=== PATIENT | male | born 1995 | race Caucasian/White ===

== ENCOUNTER → 2017-10-09 | Outpatient (CLI) | payer OTHER ==
[~2017-10-09] MED LIST: NAPROSYN500 MG PO
== END ==
LOC: COL.RAD 08:48
DX: M54.5 Low back pain (principal); M79.604 Pain in right leg

== ENCOUNTER 2017-12-28 11:20 | Emergency (ER) | payer SELFPAY ==
[~2017-12-28] VITALS: Ht 190.5 cm; Wt 113.5 kg
[2017-12-28 11:30] VITALS: TEMP 98.1
[2017-12-28] MEDS ORDERED: AMOXICILLIN 8751 TAB PO (13:03)
[2017-12-28 14:22] VITALS: BP 120/73; PULSE 96
== END 2017-12-28 14:23 | disposition home or self-care (01) ==
LOC: COL.ER 11:20
DX: S61.432A Puncture wound without foreign body of left hand, initial encounter (principal); Z23 Encounter for immunization; W54.0XXA Bitten by dog, initial encounter

== ENCOUNTER 2017-12-31 14:25 | Outpatient (RCR) | payer OTHER ==
[~2017-12-31] VITALS: Ht 190.5 cm; Wt 113.2 kg
[~2017-12-31 14:25] MED LIST changes: +AMOXICILLIN 8751 TAB PO
[2018-01-11 11:59] VITALS: BP 128/76; PULSE 100; TEMP 98.2
== END 2018-03-31 | disposition home or self-care (01) ==
LOC: EUO → COL.ER 14:25
DX: Z20.3 Contact with and (suspected) exposure to rabies (principal); Z23 Encounter for immunization